=== PATIENT | female | born 1990 | race Caucasian/White ===

== ENCOUNTER 2020-05-15 11:35 | Emergency (ER) | payer BC ==
--- NOTE | 2020-05-15 12:07 | TELE ---
HPI Do you have fever,cough or shortness of breath?: No - General Reason For Visit: COVID - History of Present Illness 05/15/20 12:04 Patient is a 30-year-old female who participated in a virtual urgent care visit for a Covid swab. She returned from a vacation for which she traveled via [facility] and is required to have testing. She denies any fevers, chills, cough, body aches, shortness of breath. She has traveled outside of [facility] in the last 14 days. Past History - Medical History Allergies/Adverse Reactions: Allergies Allergy/AdvReac Type Severity Reaction Status Date / Time No Known Allergies Allergy Verified 05/15/20 12:02 Home Medications: Ambulatory Orders NK [No Known Home Medication] 05/15/20 Review of Systems - Review of Systems Comments:: 05/15/20 12:04 - Review of Systems Able to Perform ROS?: Yes Constitutional: No: Fever, Chills, Loss of Appetite, Night Sweats, Weakness; positive: Covid testing post travel HEENTM: No: Eye Pain, Vision changes, Ear Pain, Throat Pain, Throat Swelling, Mouth Pain, Difficulty Swallowing Respiratory: No: Cough, Shortness of Breath, Wheezing, Sputum Production Cardiac (ROS): No: Chest Pain, Chest Tightness, Palpitations, Irregular Heart Beat, Edema ABD/GI: No: Nausea, Vomiting, Abdominal Pain, Diarrhea Musculoskeletal: No: Muscle Pain, Back Pain, Joint Pain, Muscle Weakness, Neck Pain Integumentary: No: Lesions, Rash Neurological: No: Headache, Numbness, Tingling, Weakness, Speech Difficulties *Physical Exam - Physical Exam 05/15/20 12:05 - Physical Exam General Appearance: Nourished, Appropriately Dressed, No Distress HEENT: EOMI, Normal Voice, Hearing Grossly Normal Neck: No Decreased range of motion Respiratory/Chest: Normal chest excursion appreciated, No Accessory Muscle Use Gastrointestinal/Abdominal: No distention Musculoskeletal: Normal Inspection Integumentary: Normal Color, Dry. No Rash Neurologic: employee relations director II-XII NML intact, Fully Oriented, Alert, Normal Mood/Affect, Normal Response - Medical Decision Making 05/15/20 12:06 Assessment: Patient is a 30-year-old female who recently traveled outside of [facility] within the last 14 days was possibly exposed to Covid.. Plan: -Covid swab -Isolation precautions reviewed -Covid counseling given Discharge Diagnosis at time of Disposition: Exposure to COVID-19 virus, Counseled about COVID-19 virus infection - Referrals - Patient Instructions Discharge Instructions: [facility] - Coronavirus Instructions, [facility] COVID-19 Isolation Protocol Additional Discharge Instructions: You were seen via a telehealth visit and tested for COVID today. You should follow isolation precautions as per [facility] guidelines. Thank you for participating in our telehealth medicine program. If you have any worsening symptoms such as high fever, shaking chills, profuse vomiting or any other worsening symptoms you should go to your local emergency department immediately or follow up with your primary care doctor immediately. If you become symptomatic: Take Tylenol 650 mg every 6 hours as needed for fever or pain. You may take Robitussin or other [id number] cough syrup. Follow the dosing instructions on the bottle. Warm tea, honey, and salt water gargles may help your symptoms. Please take precautions and self quarantine for 2 weeks and follow-up with your primary care doctor and the Department of Health. Return to the nearest emergency department for shortness of breath, difficulty breathing, chest pain, or if you have any changes in your symptoms. - Discharge Disposition: HOME Condition at time of Disposition: Stable
== END 2020-05-15 12:07 | disposition home or self-care (01) ==
LOC: JVIRT 11:35
DX: Z03.818 Encounter for observation for suspected exposure to other biological agents ruled out (principal)
CPT/HCPCS: C9803; Q3014-GT; U0003

== ENCOUNTER 2020-07-07 20:37 | Emergency (ER) | payer BC ==
[2020-07-07 20:48] VITALS: BP 117/70; PULSE 86; TEMP 98.5
== END 2020-07-07 21:21 | disposition home or self-care (01) ==
LOC: JER 20:37
DX: R11.0 Nausea (principal); R19.7 Diarrhea, unspecified; Z03.818 Encounter for observation for suspected exposure to other biological agents ruled out
CPT/HCPCS: 99283-25; C9803; U0003